=== PATIENT | female | born 1960 | race Caucasian/White ===

== ENCOUNTER → 2017-02-21 | Outpatient (CLI) | payer BC ==
--- NOTE | 2017-02-22 14:41 | MAMMOGRAPHY REPORT ---
BILATERAL DIGITAL SCREENING MAMMOGRAM TOMOSYNTHESIS WITH CAD: 02/21/2017 CLINICAL HISTORY: Routine screening. Patient has no complaints. TECHNIQUE: Breast tomosynthesis in addition to standard 2D mammography was performed. Current study was also evaluated with a Computer Aided Detection (CAD) system. COMPARISON: Comparison is made to exams dated: 12/17/2015 mammogram, 05/09/2014 mammogram, 03/08/2012 mammogram, 03/07/2011 ultrasound, 03/02/2011 mammogram, and 02/24/2010 mammogram - [facility]. BREAST COMPOSITION: The tissue of both breasts is heterogeneously dense, which may obscure small ma sses. FINDINGS: A 17 mm asymmetry in the lateral posterior left breast appears increasingly prominent com paring to prior mammograms. Although this may be in part positional, additional spot compression to mosynthesis views and possibly ultrasound are recommended to exclude a developing mass. No other suspicious mass, architectural distortion or cluster of microcalcifications is seen bilater ally. IMPRESSION: ACR BI-RADS CATEGORY 0: INCOMPLETE EVALUATION: NEED ADDITIONAL IMAGING EVALUATION The increasingly prominent 17 mm asymmetry in the lateral left breast needs additional evaluation. The patient will be called to schedule an appointment. Approximately 10% of breast cancers are not detected with mammography. A negative mammographic repor t should not delay biopsy if a clinically suggestive mass is present. Leia Flores M.D. ay/:02/21/2017 22:15:45 Student Truck Driver: Christine ENAMORADO(Malinda)(Momo), [facility] letter sent: Addl Imaging 0 BI-RADS Code: ACR BI-RADS Category 0: Incomplete Evaluation: Need Additional Imaging Evaluation
== END | disposition home or self-care (01) ==
LOC: C.MAMM 09:35
PROVIDERS: ATTEND Family Medicine
DX: Z12.31 Encounter for screening mammogram for malignant neoplasm of breast (principal); N64.89 Other specified disorders of breast

== ENCOUNTER → 2017-03-03 | Outpatient (CLI) | payer BC ==
--- NOTE | 2017-03-03 12:36 | MAMMOGRAPHY REPORT ---
UNILATERAL LEFT DIGITAL DIAGNOSTIC MAMMOGRAM TOMOSYNTHESIS AND TARGETED LEFT ULTRASOUND: 03/03/2017 CLINICAL HISTORY: Callback from screening mammogram for left breast asymmetry. TECHNIQUE: Breast tomosynthesis in addition to standard 2D mammography was performed. Spot jeff gloria left CC and MLO 2-D and tomosynthesis images were obtained. COMPARISON: Comparison is made to exams dated: 02/21/2017 mammogram, 12/17/2015 mammogram, 05/09/2014 m ammogram, 03/08/2012 mammogram, 03/07/2011 ultrasound, and 03/07/2011 mammogram - [facility]. BREAST COMPOSITION: The tissue of the left breast is heterogeneously dense, which may obscure small masses. FINDINGS: The previously described asymmetry seen within the left lateral posterior breast effaces t o a baseline appearance on the additional spot compression views, with appearance of the region joshua lar to prior exams including the 2008 exam. No clear mammographic mass or architectural distortion is noted in this region on the tomosynthesis images. Targeted ultrasound was performed of the left lateral breast in the region of the mammographic asymm etry seen on one view only. A few scattered small cysts were noted, including a small 2 x 4 mm anec hoic benign simple cyst in the left breast at 2:30, 3 cm from the nipple. Additionally, there is a round anechoic benign 2 mm cyst seen within the left breast at 1:00, 37 m from the nipple. In the l eft breast at 2:00, 4 cm from the nipple, there is an oval circumscribed isoechoic 6 x 3 x 4 mm mass , as well as an adjacent isoechoic mass which measures 5 x 3 x 6 mm. These are likely incidentally noted on ultrasound and do not correspond with the mammographic asymmetry. The masses are indetermi tone and ultrasound guided biopsy is recommended for further evaluation. These may represent fibroa denomas or even prominent fat lobules. IMPRESSION: ACR BI-RADS CATEGORY 4: SUSPICIOUS, TARGETED ULTRASOUND ACR BI-RADS CATEGORY 4: SUSPICI OUS 1. The left breast asymmetry effaces on the additional views, and is felt to represent normal fibro glandular tissue. 2. Incidentally noted two adjacent isoechoic masses in the left breast at 2:00 on ultrasound, both measuring 6 mm. The masses are indeterminate as solid masses cannot be excluded. Recommend ultraso und-guided core needle biopsy 2 for further evaluation. These may represent fibroadenomas or benig n breast tissue. A phone call was made to the physician's office to confirm faxed results were received. The patient has been verbally notified of the results. She tentatively scheduled the biopsy before leaving the department. Approximately 10% of breast cancers are not detected with mammography. A negative mammographic repor t should not delay biopsy if a clinically suggestive mass is present. Michelle Herndon M.D. ah/:03/03/2017 11:52:55 Cloud Automation Tester: Brandie MELLO)(Momo), [facility] letter sent: Abnormal 4/5 BI-RADS Code: ACR BI-RADS Category 4: Suspicious Ultrasound BI-RADS: ACR BI-RADS Category 4: Suspic ious
== END | disposition home or self-care (01) ==
LOC: C.MAMM 09:31
PROVIDERS: ATTEND Family Medicine
DX: N64.89 Other specified disorders of breast (principal)

== ENCOUNTER → 2017-03-13 | Outpatient (CLI) | payer BC ==
--- NOTE | 2017-03-13 13:35 | Discharge Instructions ---
Discharge Instructions Procedure Procedure Date: Mar 13, 2017. Reason for visit: Left Masses. Discharge Discharge Date: Mar 13, 2017. Discharge Diagnosis: post left breast ultrasound guided core biopsy x 2 in the 2:00 axis Instructions Activity Recommendations: Additional Limitations (see below) Return to School/Work: no limitations Recommended Home Diet: No Limitations Provider Instructions: ACTIVITY RECOMMENDATIONS: * No lifting, pushing, pulling or exercising the affected side for three days. RETURN TO SCHOOL/WORK: * You may return to work/school after the procedure, but do not perform any strenuous activities for 24 to 48 hours. MEDICATIONS: * Tylenol (two 325 mg) every four to six hours if needed for mild pain (if not allergic to Tylenol). DIET: * Resume previous diet. SPECIAL CARE INSTRUCTIONS: * Keep biopsy site dry for 24 hours. May shower after 24 hours, but do not soak (bathe) incision. * May remove Tegaderm (plastic patch) tomorrow AFTER showering. * Leave the steri-strips on for one week. Allow the steri-strips to fall off by themselves. If not off after one week, you may remove them. You may place a Bandaid crosswise over the strips, if desired. * Apply ice 10 minutes on and 10 minutes off as needed. * Wear a bra at bedtime to sleep more comfortably for 2-3 days. * Your referring physician should have the results after approximately 5 to 7 business days. * Call for unusual bleeding, fever, drainage, etc or if you have any questions call [phone] during normal business hours or after hours call Dr Flores, . FOLLOW UP VISIT: Follow-up with Referring Physician as scheduled. Allergies Coded Allergies: Clarithromycin (Unverified Allergy, Mild, UNKNOWN, 12/25/09) Uncoded Allergies: N (Allergy, Unknown, 01/02/03) NKA (Allergy, Unknown, 01/02/03) Romulo Rowan Recommendations: Call your doctor if: * Temperature above 101 degrees * Pain not relieved by pain medicine ordered * There is increased drainage or redness from any incision * You have any unanswered questions or concerns. Your Doctors Instructions noted above were prepared by provider Leia Flores. Patient Signature Section: Patient Instructions Signature Page Phoebe Medina Patient (or Guardian) Signature/Date: I have read and understand the instructions given to me by my caregivers. Caregiver/RN/Doctor Signature/Date: The above-named patient and/or guardian has received patient instructions on this date. + Original Patient Signature Page (only) stays with chart. Please make copy for patient.
--- NOTE | 2017-03-13 15:50 | MAMMOGRAPHY REPORT ---
UNILATERAL LEFT DIGITAL DIAGNOSTIC MAMMOGRAM: 03/13/2017 CLINICAL HISTORY: Indeterminate solid appearing masses in the 2:00 left breast located 4 cm from the nipple and 5 cm from the nipple. Patient presents for ultrasound-guided core biopsy 2. Please refer to the report from left breast ultrasound guided core biopsy performed at the same time for full detail. IMPRESSION: POST PROCEDURE IMAGING FOR MARKER PLACEMENT Please refer to the report from left breast ultrasound guided core biopsy performed at the same time for full detail. Approximately 10% of breast cancers are not detected with mammography. A negative mammographic repor t should not delay biopsy if a clinically suggestive mass is present. Leia Flores M.D. ay/:03/13/2017 13:38:17 Ecdis N Navigation Operator: Brandie ENAMORADO(R)(M), [facility] BI-RADS Code: Post Procedure Imaging For Marker Placement
--- NOTE | 2017-03-13 15:50 | MAMMOGRAPHY REPORT ---
MULTIPLE ULTRASOUND GUIDED BIOPSIES LEFT BREAST: 03/13/2017 CLINICAL HISTORY: Indeterminate hypoechoic masses in the 2:00 left breast located 4 cm and 5 cm from the nipple. Patient presents for ultrasound-guided core biopsy 2. COMPARISON: Comparison is made to exams dated: 03/03/2017 mammogram, 03/03/2017 ultrasound, 02/21/2017 mammogram, and 12/17/2015 mammogram - [facility]. PATIENT CONSENT: The procedure, risks and benefits were discussed with the patient and informed writ ten consent was obtained. Specific risks to this procedure include: bleeding, infection, puncture of adjacent structure, nontarget biopsy, sampling error, metal allergy and medication reaction. PROCEDURE DESCRIPTION: First repeat targeted ultrasound was performed in the 2:00 axis of the left b reast in the area of previously described hypoechoic solid appearing masses located 4 cm from the ni pple and 5 cm from the nipple. Indeterminate hypoechoic sub-centimeter masses are again identified and amenable to ultrasound-guided core needle biopsy. A time out was performed and the left breast was agreed as the site of biopsy. The skin was prepped and draped in the usual sterile fashion. First the mass in the 2:00 breast, 4 cm from the nipple wa s identified and targeted for biopsy. Subcutaneous and intraparenchymal 1% buffered lidocaine, with and without epinephrine, was administered as local anesthesia. A skin incision was made. Through t he incision, 4 samples were taken with a 14 gauge Achieve biopsy device. A ribbon shaped metallic ma rker was placed at the biopsy site. Hemostasis was achieved after manual compression. The patient to lerated the procedure well and there was no immediate complication. Then the rounded hypoechoic mass in the 2:00 axis, 5 cm from the nipple, adjacent to the above biops ied mass, was identified and targeted for biopsy. Additional buffered lidocaine with and without ep inephrine was administered. The same incision from the first biopsy was utilized. Through the inci gloria, 5 samples were obtained with a 14-gauge achieve biopsy device. A wing-shaped metallic biopsy marker was placed at this site. Hemostasis was achieved after manual compression. The patient tole rated the procedure well and there was no immediate complication. All of the samples were sent to the pathology department in appropriately labeled containers. Postp rocedure left CC, ML, LM and and XCCL views were obtained. Given the far posterior location of the biopsy is located adjacent to the pectoralis muscle, the metallic biopsy markers are only seen on th e exaggerated lateral CC view. No significant postbiopsy hematoma is identified. IMPRESSION: ULTRASOUND GUIDED BIOPSY Status post ultrasound-guided core needle biopsy of 2 indeterminate masses in the 2:00 left breast l ocated 4 cm and 5 cm from the nipple. Metallic biopsy markers were placed at each site. The patient will receive notification of the biopsy results from her referring physician. Leia Flores M.D. ay/:03/13/2017 13:54:51 Lead Miner Blasting: Brandie MELLO)(Momo), [facility]
--- NOTE | 2017-03-13 15:50 | MAMMOGRAPHY REPORT ---
ULTRASOUND GUIDED BIOPSY LEFT BREAST: 03/13/2017 CLINICAL HISTORY: Indeterminate solid masses in the 2:00 left breast, 4 cm and 5 cm from the nipple. Patient presents for left breast ultrasound guided core biopsy 2. Please refer to the report from left breast ultrasound guided core biopsy performed at the same time for full detail. IMPRESSION: ULTRASOUND GUIDED BIOPSY Please refer to the report from left breast ultrasound guided core biopsy performed at the same time for full detail. Leia Flores M.D. ay/:03/13/2017 13:37:26 Typewriter Ribbon Winder: Brandie ENAMORADO(R)(M), [facility]
== END | disposition home or self-care (01) ==
LOC: C.MAMM 12:41
PROVIDERS: ATTEND Family Medicine
DX: N63 Unspecified lump in breast (principal)